=== PATIENT | female | born 1950 | race Caucasian/White ===

== ENCOUNTER → 2017-09-21 17:56 | Outpatient (REF) | payer MEDICARE, SELFPAY ==
[2017-09-21 20:42] LABS: Digoxin 0.87 ng/mL (0.90-2.00)
== END ==
LOC: NCHCN 17:56
PROVIDERS: PCP Nurse Practitioner Family; Visit Provider Physician Assistant Medical
DX: I48.0 Paroxysmal atrial fibrillation (principal); Z79.899 Other long term (current) drug therapy
CPT/HCPCS: 80162

== ENCOUNTER 2018-10-13 09:29 | Outpatient (REF) | payer MEDICARE, SELFPAY ==
[2018-10-13 21:29] LABS: ALT 29 U/L (14-59); AST 13 U/L (15-37); Anion Gap 8.1 mmol/L (3-11); BUN 16 mg/dL (7-18); CO2 27.9 mmol/L (21.0-32.0); CREATININE 1.06 mg/dL (0.55-1.02); Calculated LDL 119 mg/dL; Chloride 104 mmol/L (98-107); Cholesterol 197 mg/dL (50-200); Estimated GFR 51.86 (mL/min/1.73m2); Glucose 102 mg/dL (70-100); HDL Cholesterol 50 mg/dL (40-60); Potassium 4.3 mmol/L (3.5-5.1); Sodium 140 mmol/L (136-145); TSH 2.56 uIU/mL (0.36-3.74); Triglyceride 140 mg/dL (30-150)
[2018-10-13 21:45] LABS: Creatine Kinase 72 U/L (26-192)
== END 2018-10-13 09:49 ==
LOC: NCHCN 09:29
PROVIDERS: PCP Nurse Practitioner Family; Visit Provider Nurse Practitioner Family
DX: I10 Essential (primary) hypertension (principal); E78.5 Hyperlipidemia, unspecified; I48.0 Paroxysmal atrial fibrillation; F41.9 Anxiety disorder, unspecified
CPT/HCPCS: 80048; 80053; 80061; 82550; 80162; 84443; 84450; 84460

== ENCOUNTER 2018-10-15 09:05 | Outpatient (REF) | payer MEDICARE, SELFPAY ==
[2018-10-15 09:53] LABS: Anion Gap 7.9 mmol/L (3-11); BUN 18 mg/dL (7-18); CO2 30.1 mmol/L (21.0-32.0); CREATININE 1.03 mg/dL (0.55-1.02); Calcium 9.5 mg/dL (8.5-10.1); Chloride 103 mmol/L (98-107); Digoxin 0.82 ng/mL (0.90-2.00); Estimated GFR 53.61 (mL/min/1.73m2); Glucose 108 mg/dL (70-100); Potassium 4.8 mmol/L (3.5-5.1); Sodium 141 mmol/L (136-145)
== END 2018-10-15 09:25 ==
LOC: NCHCN 09:05
PROVIDERS: PCP Nurse Practitioner Family; Visit Provider Family Medicine
DX: I48.0 Paroxysmal atrial fibrillation (principal); I10 Essential (primary) hypertension; E78.5 Hyperlipidemia, unspecified; Z51.81 Encounter for therapeutic drug level monitoring
CPT/HCPCS: 80048; 80162

== ENCOUNTER 2018-10-25 11:28 | Outpatient (CLI) | payer MEDICARE, SELFPAY ==
[2018-10-25 12:07] LABS: Abs Immature Grans 0.09 k/cumm (0.0-0.09); Absolute Basophil Count 0.04 k/cumm (0.0-0.2); Absolute Eosinophil Count 0.23 k/cumm (0.0-0.7); Absolute Lymphocyte Count 2.29 k/cumm (1.2-3.4); Absolute Monocyte Count 0.49 k/cumm (0.11-0.7); Absolute Neutrophil Count 5.26 k/cumm (1.2-6.7); Basophils % 0.5; Eosinophils % 2.7; HCT 43.4 % (36.0-46.0); HGB 14.1 g/dL (12.0-15.5); Immature Grans % 1.1; Lymphocytes % 27.3; Mean Corp. HGB Concentration 32.5 g/dL (32.0-36.0); Mean Corpuscular Hemoglobin 30.4 pg (27.0-33.0); Mean Corpuscular Volume 93.5 fL (80-95); Monocytes % 5.8; Neutrophils % 62.6; Platelet Count 343 x1000/uL (130-400); RBC 4.64 m/cumm (4.00-5.20); RBC Distribution Width 13.7 % (11.7-14.6)
[2018-10-25 12:47] LABS: BUN 17 mg/dL (7-18); CREATININE 0.85 mg/dL (0.55-1.02); Calcium 9.4 mg/dL (8.5-10.1); Chloride 104 mmol/L (98-107); Digoxin 1.22 ng/mL (0.90-2.00); Glucose 123 mg/dL (70-100); Potassium 4.1 mmol/L (3.5-5.1); Sodium 141 mmol/L (136-145); TSH 1.43 uIU/mL (0.36-3.74)
== END 2018-10-25 11:48 ==
PROVIDERS: PCP Nurse Practitioner Family; Visit Provider Nurse Practitioner Family
DX: I10 Essential (primary) hypertension (principal); I48.0 Paroxysmal atrial fibrillation; Z51.81 Encounter for therapeutic drug level monitoring; Z79.899 Other long term (current) drug therapy
CPT/HCPCS: 36415; 80048; 80162; 84443; 85025

== ENCOUNTER 2018-11-03 01:59 | Outpatient (CLI) | payer MEDICARE, SELFPAY ==
--- NOTE | 2018-11-22 12:23 | ZIOP_ITS ---
ZIO Patch [employer] Note: This is a ZIO Patch ordered for paroxysmal atrial fibrillation. Total enrollment time was 12 days 22 hours. ?The patient had a minimum heart rate of 34 bpm and maximum heart rate of 197 bpm and average heart rate of 51 bpm ?The prominent underlying rhythm was sinus rhythm ?There were 38 episodes of supraventricular tachycardia.The fastest interval had a maximum rate of 197 bpm and the longest interval lasted 12 beats. ?There was one run of ventricular tachycardia which lasted 4 beats ?There were occasional (1.2%) supraventricular ectopic beats with rare couplets and triplets ?There were rare (less than 1%) isolated ventricular ectopic beats and no couplets or triplets. ?Patient triggered events were associated with sinus rhythm. ?There were no pauses greater than 3 seconds, no high degree AV block, and no episodes of atrial fibrillation.
== END 2018-11-03 02:19 ==
PROVIDERS: PCP Nurse Practitioner Family; Visit Provider Nurse Practitioner Family
DX: I48.0 Paroxysmal atrial fibrillation (principal); I47.1 Supraventricular tachycardia; I47.2 Ventricular tachycardia
CPT/HCPCS: 0296T

== ENCOUNTER 2018-11-22 12:23 | Outpatient (CLI) | payer MEDICARE, SELFPAY | END 2018-11-22 12:43 | PROVIDERS: PCP Nurse Practitioner Family; Referring Provider Nurse Practitioner Family; Visit Provider Internal Medicine Cardiovascular Disease | DX: I48.0 Paroxysmal atrial fibrillation (principal); I47.1 Supraventricular tachycardia; I47.2 Ventricular tachycardia | CPT/HCPCS: 0298T ==

== ENCOUNTER 2019-11-16 09:29 | Outpatient (REF) | payer MEDICARE, SELFPAY ==
[2019-11-16 20:54] LABS: Anion Gap 7.3 mmol/L (3-11); BUN 16 mg/dL (7-18); CO2 29.7 mmol/L (21.0-32.0); CREATININE 1.06 mg/dL (0.55-1.02); Calcium 9.3 mg/dL (8.5-10.1); Calculated LDL 115 mg/dL (<100); Chloride 104 mmol/L (98-107); Cholesterol 203 mg/dL (<200); Estimated GFR 51.71 (mL/min/1.73m2); Glucose 88 mg/dL (74-106); HDL Cholesterol 71 mg/dL (40-60); Potassium 4.1 mmol/L (3.5-5.1); Sodium 141 mmol/L (136-145); Triglyceride 87 mg/dL (<150)
== END 2019-11-16 09:49 ==
LOC: NCHCN 09:29
PROVIDERS: PCP Nurse Practitioner Family; Visit Provider Nurse Practitioner Family
DX: I10 Essential (primary) hypertension (principal); E78.5 Hyperlipidemia, unspecified
CPT/HCPCS: 80048; 80061

== ENCOUNTER 2020-01-17 20:55 | Outpatient (REF) | payer MEDICARE, SELFPAY ==
[2020-01-17 20:02] LABS: ALT 23 U/L (14-59); AST 14 U/L (15-37); Calculated LDL 94 mg/dL (<100); Cholesterol 182 mg/dL (<200); HDL Cholesterol 70 mg/dL (40-60); Triglyceride 93 mg/dL (<150)
[2020-01-17 20:16] LABS: Creatine Kinase 67 U/L (26-192)
== END 2020-01-17 21:15 ==
LOC: NCHCN 20:55
PROVIDERS: PCP Nurse Practitioner Family; Visit Provider Nurse Practitioner Family
DX: E78.5 Hyperlipidemia, unspecified (principal)
CPT/HCPCS: 80061; 82550; 84450; 84460

== ENCOUNTER 2020-05-21 15:06 | Outpatient (REF) | payer MEDICARE, SELFPAY ==
[2020-05-21 15:45] LABS: Anion Gap 13.3 mmol/L (3-11); BUN 21 mg/dL (7-18); CO2 22.7 mmol/L (21.0-32.0); Calcium 9.8 mg/dL (8.5-10.1); Chloride 106 mmol/L (98-107); Estimated GFR 55.14 (mL/min/1.73m2); Glucose 99 mg/dL (74-106); Potassium 4.4 mmol/L (3.5-5.1); Sodium 142 mmol/L (136-145)
== END 2020-05-21 15:07 | disposition home or self-care (01) ==
LOC: NCHCN 15:06
PROVIDERS: PCP Nurse Practitioner Family; Visit Provider Nurse Practitioner Family
DX: I10 Essential (primary) hypertension (principal)
CPT/HCPCS: 80048

== ENCOUNTER 2020-11-26 13:14 | Outpatient (REF) | payer MEDICARE, SELFPAY ==
[2020-11-26 14:30] LABS: ALT 28 U/L (14-59); AST 15 U/L (15-37); HDL Cholesterol 70 mg/dL (40-60); LDL CHOLESTEROL 106 mg/dL (<100)
[2020-11-26 14:45] LABS: Creatine Kinase 45 U/L (26-192)
== END 2020-11-26 13:15 | disposition home or self-care (01) ==
LOC: NCHCN 13:14
PROVIDERS: PCP Nurse Practitioner Family; Visit Provider Nurse Practitioner Family
DX: E78.5 Hyperlipidemia, unspecified (principal); I10 Essential (primary) hypertension; R10.13 Epigastric pain; I48.0 Paroxysmal atrial fibrillation
CPT/HCPCS: 82550; 83721; 83718; 84450; 84460

== ENCOUNTER 2021-05-27 13:48 | Outpatient (REF) | payer MEDICARE, SELFPAY ==
[2021-05-27 13:46] LABS: Anion Gap 7.4 mmol/L (3-11); BUN 17 mg/dL (7-18); CO2 28.6 mmol/L (21.0-32.0); CREATININE 0.9 mg/dL (0.55-1.02); Calcium 8.9 mg/dL (8.5-10.1); Chloride 106 mmol/L (98-107); Glucose 90 mg/dL (74-106); Potassium 4.5 mmol/L (3.5-5.1); Sodium 142 mmol/L (136-145)
== END 2021-05-27 13:49 | disposition home or self-care (01) ==
LOC: NCHCN 13:48
PROVIDERS: PCP Nurse Practitioner Family; Visit Provider Nurse Practitioner Family
DX: I10 Essential (primary) hypertension (principal)
CPT/HCPCS: 80048

== ENCOUNTER 2021-11-12 08:23 | Outpatient (REF) | payer MEDICARE, SELFPAY ==
[2021-11-12 17:48] LABS: ALT 24 U/L (14-59); AST 19 U/L (15-37); HDL Cholesterol 75 mg/dL (40-60); LDL CHOLESTEROL 102 mg/dL (<100)
[2021-11-12 18:08] LABS: Creatine Kinase 113 U/L (26-192)
== END 2021-11-12 08:24 | disposition home or self-care (01) ==
LOC: NCHCN 08:23
PROVIDERS: PCP Nurse Practitioner Family; Visit Provider Nurse Practitioner Family
DX: E78.5 Hyperlipidemia, unspecified (principal); I10 Essential (primary) hypertension; I48.0 Paroxysmal atrial fibrillation
CPT/HCPCS: 82550; 83721; 83718; 84450; 84460

== ENCOUNTER 2022-11-13 11:28 | Outpatient (REF) | payer MEDICARE, SELFPAY ==
[2022-11-13 15:33] LABS: ALT 21 U/L (14-59); AST 17 U/L (15-37); Albumin 3.7 g/dL (3.4-5.0); Alkaline Phosphatase 77 U/L (46-116); BUN 13 mg/dL (7-18); Bilirubin, Total 0.7 mg/dL (0.2-1.0); Calcium 9.3 mg/dL (8.5-10.1); Chloride 104 mmol/L (98-107); Creatine Kinase 78 U/L (26-192); Estimated GFR 60.61 (mL/min/1.73m2); Glucose 104 mg/dL (74-106); HDL Cholesterol 74 mg/dL (40-60); LDL CHOLESTEROL 92 mg/dL (<100); Potassium 4.3 mmol/L (3.5-5.1); Sodium 138 mmol/L (136-145); Total Protein 7.6 g/dL (6.4-8.2)
== END 2022-11-13 11:29 | disposition home or self-care (01) ==
LOC: NCHCN 11:28
PROVIDERS: PCP Nurse Practitioner Family; Visit Provider Nurse Practitioner Family
DX: I10 Essential (primary) hypertension (principal); E78.5 Hyperlipidemia, unspecified; I48.0 Paroxysmal atrial fibrillation
CPT/HCPCS: 80053; 82550; 83721; 83718

== ENCOUNTER 2023-01-21 16:34 | Outpatient (REF) | payer MEDICARE, SELFPAY ==
[2023-01-21 20:59] LABS: HCT 43.9 % (36.0-46.0); HGB 14.3 g/dL (11.2-15.7); MCH 30.2 pg (27.0-33.0); MCHC 32.6 % (32.0-36.0); MCV 93 fL (80-95); MPV 10.3 fL (8.0-11.0); Platelet Count 324 10^3/uL (130-400); RBC 4.73 10^6/uL (3.93-5.22); RDW 13.5 % (11.7-14.6); RDW-SD 46.8 fL; WBC 7.16 10^3/uL (4.4-10.8)
[2023-01-21 21:02] LABS: ESR 17 mm/hr (0-30)
[2023-01-23 10:11] LABS: Lyme Ab w Rflx to Lyme Confirm Negative (Negative)
[2023-01-23 17:18] LABS: ANA Interpretation Positive (Negative); ANA Titer Pattern 1:80 Speckled
[2023-01-24 22:09] LABS: Anaplasma phagocytophilum Negative (Negative); B. miyamotoi PCR Negative (Negative); Babesia divergens/MO-1 Negative (Negative); Babesia duncani Negative (Negative); Babesia microti Negative (Negative); Ehrlichia chaffeensis Negative (Negative); Ehrlichia ewingii/canis Negative (Negative); Ehrlichia muris eauclairensis Negative (Negative)
[2023-01-26 11:47] LABS: c-ANCA Negative (Negative); p-ANCA Negative (Negative)
== END 2023-01-21 16:35 | disposition home or self-care (01) ==
LOC: NCHCN 16:34
PROVIDERS: PCP Nurse Practitioner Family; Visit Provider Nurse Practitioner Family
DX: R21 Rash and other nonspecific skin eruption (principal)
CPT/HCPCS: 85027; 85652; 87798; 86038; 86255; 86618

== ENCOUNTER 2023-12-08 23:59 | Outpatient (REF) | payer MEDICARE, SELFPAY ==
[2023-12-08 20:27] LABS: ALT 22 U/L (14-59); AST 19 U/L (15-37); Albumin 3.8 g/dL (3.4-5.0); Alkaline Phosphatase 88 U/L (46-116); Anion Gap 10.6 mmol/L (3-11); BUN 17 mg/dL (7-18); Bilirubin, Total 0.34 mg/dL (0.2-1.0); CO2 26.4 mmol/L (21.0-32.0); CREATININE 0.9 mg/dL (0.55-1.02); Calcium 9.6 mg/dL (8.5-10.1); Calculated LDL 104 mg/dL (<100); Chloride 105 mmol/L (98-107); Cholesterol 203 mg/dL (<200); Estimated GFR 68.35 (mL/min/1.73m2); Glucose 95 mg/dL (74-106); HDL Cholesterol 77 mg/dL (40-60); Potassium 4.5 mmol/L (3.5-5.1); Sodium 142 mmol/L (136-145); Triglyceride 110 mg/dL (<150)
[2023-12-08 20:48] LABS: Hemoglobin A1C 5.4 % (<5.7)
== END 2023-12-09 | disposition home or self-care (01) ==
LOC: NCHCN 23:59
PROVIDERS: PCP Physician Assistant Medical; Visit Provider Physician Assistant Medical
DX: E78.5 Hyperlipidemia, unspecified (principal); R73.9 Hyperglycemia, unspecified
CPT/HCPCS: 80053; 80061; 83036

== ENCOUNTER 2024-12-19 14:07 | Outpatient (REF) | payer MEDICARE, SELFPAY ==
[2024-12-19 15:58] LABS: ALT 18 U/L (14-59); AST 16 U/L (15-37); Albumin 3.9 g/dL (3.4-5.0); Alkaline Phosphatase 81 U/L (46-116); Anion Gap 8.9 mmol/L (3-11); BUN 17 mg/dL (7-18); Bilirubin, Total 0.6 mg/dL (0.2-1.0); CO2 28.1 mmol/L (21.0-32.0); Calcium 9.1 mg/dL (8.5-10.1); Chloride 103 mmol/L (98-107); Cholesterol 228 mg/dL (<200); Glucose 89 mg/dL (74-106); HDL Cholesterol 71 mg/dL (>or=50); Potassium 4.9 mmol/L (3.5-5.1); Sodium 140 mmol/L (136-145); Total Protein 7.5 g/dL (6.4-8.2)
== END 2024-12-19 14:08 | disposition home or self-care (01) ==
LOC: NCHCN 14:07
PROVIDERS: PCP Physician Assistant Medical; Visit Provider Physician Assistant Medical
DX: I10 Essential (primary) hypertension (principal); E78.5 Hyperlipidemia, unspecified
CPT/HCPCS: 80053; 80061